=== PATIENT | male | born 1995 | race Caucasian/White ===

== ENCOUNTER 2019-08-08 18:09 | Emergency (ER) | payer OTHER, BC ==
[2019-08-08] MEDS ORDERED: Tetracaine HCl/PF 0.5% 4 ML Bottle OP ONE (18:10)
--- NOTE | 2019-08-08 18:30 | EDM.PDOC ---
ED HPI GENERAL MEDICAL PROBLEM - General Chief Complaint: Eye Problems Stated Complaint: FB Right eye Time Seen by Provider: 08/08/19 18:10 Source of Information: Reports: Patient History Limitations: Reports: No Limitations - History of Present Illness INITIAL COMMENTS - FREE TEXT/NARRATIVE: Was grinding today and had a piece of metal fly into the right eye. He was wearing safety glasses. He feels that something is in his eye under the top eyelid. He has been rubbing it. He did this shortly before noon. Onset: Today Location: Reports: Other (right eye) Right Eye Pain Score (Numeric/FACES): 4 - Related Data Allergies Allergy/AdvReac Type Severity Reaction Status Date / Time No Known Allergies Allergy Verified 08/08/19 18:13 Home Meds: Home Meds . [No Known Home Meds] 08/08/19 [History] Past Medical History - Past Surgical History HEENT Surgical History: Reports: Tonsillectomy Social & Family History - Family History Family Medical History: Noncontributory - Tobacco Use Smoking Status *Q: Never Smoker - Recreational Drug Use Recreational Drug Use: No ED ROS GENERAL - Review of Systems Review Of Systems: See Below Constitutional: Denies: Fever HEENT: Reports: Eye Pain (right eye) Respiratory: Reports: No Symptoms ED EXAM GENERAL W FULL EYE - Physical Exam Exam: See Below Exam Limited By: No Limitations General Appearance: Alert, WD/WN, Mild Distress Eye Exam: Right Eye: Foreign Body, Bilateral Eye: PERRL Eyelids: Bilateral: Normal Appearance Cornea Exam: Right: Corneal Abrasion Pupillary Size: Bilateral: 4 mm Pupillary Reaction: Bilateral: Brisk Neurological: Alert ED EYE w/ Add Procedure - Eye Procedure Alcaine Drops Administered: Yes (and fluroscein.) Eye FB Removal: Removal w/ Cotton Swab (Small dark particle removed from under the right upper eyelid. ) Course - Vital Signs Last Recorded V/S: Last Vital Signs Temp 98.6 F 08/08/19 18:13 Pulse 85 08/08/19 18:13 Resp 18 08/08/19 18:13 BP 148/78 H 08/08/19 18:13 Pulse Ox 98 08/08/19 18:13 Departure - Departure Time of Disposition: 18:27 Disposition: Home, Self-Care 01 Condition: Good Clinical Impression: Corneal abrasion Qualifiers: Encounter type: initial encounter Laterality: right Qualified Code(s): S05.01XA - Injury of conjunctiva and corneal abrasion without foreign body, right eye, initial encounter Foreign body in eye Qualifiers: Encounter type: initial encounter Laterality: right Qualified Code(s): T15.91XA - Foreign body on external eye, part unspecified, right eye, initial encounter - Discharge Information *PRESCRIPTION DRUG MONITORING PROGRAM REVIEWED*: Not Applicable *COPY OF PRESCRIPTION DRUG MONITORING REPORT IN PATIENT VÍCTOR: Not Applicable Instructions: Eye Foreign Body Forms: ED Department Discharge Additional Instructions: If You still have sensation that something is in the eye you need to see Eye Dr. tomorrow. Do not wait as you need to be seen tomorrow. If pain is gone you do not need to see them. Do not rub eye Recheck if any ne concerns. Sepsis Event Note - Evaluation Sepsis Screening Result: No Definite Risk - Focused Exam Vital Signs: Vital Signs Temp Pulse Resp BP Pulse Ox 08/08/19 18:13 98.6 F 85 18 148/78 H 98 Date Exam was Performed: 08/08/19 Time Exam was Performed: 18:35 - Problem List & Annotations (1) Corneal abrasion SNOMED Code(s): 78491027 Code(s): S05.00XA - INJ CONJUNCTIVA AND CORNEAL ABRASION W/O FB, UNSP EYE, INIT Status: Acute Priority: High Qualifiers: Encounter type: initial encounter Laterality: right Qualified Code(s): S05.01XA - Injury of conjunctiva and corneal abrasion without foreign body, right eye, initial encounter (2) Foreign body in eye SNOMED Code(s): 250628644, 735595212 Code(s): T15.90XA - FOREIGN BODY ON EXTERNAL EYE, PART UNSP, UNSP EYE, INIT Status: Acute Priority: High Qualifiers: Encounter type: initial encounter Laterality: right Qualified Code(s): T15.91XA - Foreign body on external eye, part unspecified, right eye, initial encounter - Problem List Review Problem List Initiated/Reviewed/Updated: Yes
[2019-08-08] MEDS ORDERED: Tetracaine HCl/PF 0.5% 4 ML Bottle EYERT ONE (19:16)
[2019-08-08] MEDS ORDERED: Fluorescein 1 MG Ophth Strip EYERT ONE (19:16)
== END 2019-08-08 18:45 | disposition home or self-care (01) ==
LOC: CC.ED 18:09
DX: T15.11XA Foreign body in conjunctival sac, right eye, initial encounter (principal); X58.XXXA Exposure to other specified factors, initial encounter; Y99.0 Civilian activity done for income or pay
CPT/HCPCS: 65205; 99283-25